=== PATIENT | female | born 1990 | race Caucasian/White ===

== ENCOUNTER → 2016-12-05 | Outpatient (CLI) | payer BC ==
[~2016-12-05] MED LIST: CELEXA 20MG20 MG/TAB PO; CEPHALEXIN500 M1 PO; DEPO-PROVER400 MG/ML IM; FLEXERIL 1010 MG/TAB PO; LEXAPRO 10MG10 MG PO; NAPROSYN500 MG PO; NO HOME MEDICATIONS; NORCO 325 MG-51 TAB PO; PRILOSEC 20MG20 MG PO; VENTOLIN0.09 MG IH
== END ==
LOC: BHSO 08:39
DX: F41.0 Panic disorder [episodic paroxysmal anxiety] (principal)
CPT/HCPCS: 90791-AI

== ENCOUNTER → 2017-01-02 | Outpatient (CLI) | payer BC | LOC: BHSO 15:16 | DX: F33.41 Major depressive disorder, recurrent, in partial remission (principal) ==

== ENCOUNTER 2017-03-30 13:00 | Outpatient (RCR) | payer BC | END 2017-04-02 13:26 | LOC: MKS.ESL.PT 13:00 | DX: M54.2 Cervicalgia (principal) | CPT/HCPCS: G0283-GP ==

== ENCOUNTER → 2020-06-11 | Outpatient (CLI) | payer OTHER | LOC: COL.CARD 11:10 | DX: R00.0 Tachycardia, unspecified (principal); R94.31 Abnormal electrocardiogram [ECG] [EKG] ==

== ENCOUNTER 2022-01-19 15:39 | Outpatient (CLI) | payer BC ==
[~2022-01-19] VITALS: Ht 170.2 cm; Wt 97.5 kg
[2022-01-19 16:05] VITALS: BP 143/96; PULSE 83; TEMP 99
[2022-01-19 16:06] LABS: HEMATOCRIT 41.4 % (37.0-47.0); HEMOGLOBIN 14.2 g/dl (12.5-16.0); MEAN CELL VOLUME 87 fl (80.0-100.0); MEAN CORPUSCULAR HEMOGLOBIN 30 pg (27-31); MEAN CORPUSCULAR HGB CONC 34 g/dl (33.0-37.0); MEAN PLATELET VOLUME 9.9 fl (7.4-10.4); PLATELET COUNT 220 K/mm3 (130-400); RED BLOOD COUNT 4.77 M/mm3 (4.10-5.30); REDCELL DISTRIBUTION WIDTH-CV 11.9 % (11.5-14.5)
[2022-01-19 16:20] LABS: BILIRUBIN,TOTAL 0.6 mg/dL (0.2-1.2); CALCIUM 9.3 mg/dL (8.4-10.2); CREATININE, serum 0.68 mg/dL (0.57-1.11); POTASSIUM 3.6 mmol/L (3.5-4.5); TOTAL PROTEIN 7.6 gm/dL (6.2-8.1)
[2022-01-19] MEDS ORDERED: PROTONIX 40MG T40 MG PO (16:22)
[2022-01-19] MEDS ORDERED: ZOLOFT 100MG100 MG PO (16:22)
[2022-01-19 16:37] LABS: BAND 6 % (0-10); EOSINOPHIL 3 % (0-4); LYMPHOCYTE 40 % (20.0-51.0); NEUTROPHILS 45 % (42.0-75.2); PLATELET ESTIMATE NORMAL (NORMAL)
--- NOTE | 2022-01-19 17:08 | NUR ---
Report to Miller Alatorre.
[2022-01-19 18:47] VITALS: BP 114/77; PULSE 77
[2022-01-20 00:25] LABS: EBV NUCLEAR ANTIGEN IGG Positive (())
[2022-01-20 00:28] LABS: EBV EARLY ANTIGEN IGG Positive (()); EBV IGM AB Negative (())
== END 2022-01-19 19:15 | disposition home or self-care (01) ==
LOC: COL.RAD 15:39
PROVIDERS: Internal Medicine
DX: J03.00 Acute streptococcal tonsillitis, unspecified (principal)
CPT/HCPCS: J7030; Q9967

== ENCOUNTER → 2023-01-02 | Outpatient (CLI) | payer BC ==
[~2023-01-02] MED LIST changes: +PROTONIX 40MG T40 MG PO; +ZOLOFT 100MG100 MG PO
[2023-01-02 14:40] LABS: BASO # 0.1 K/mm3 (0.0-0.2); BASO % 0.4 % (0.0-2.0); EOS # 0.1 K/mm3 (0.0-0.7); EOS % 1.2 % (0.0-4.0); GRAN # 9.1 K/mm3 (1.4-6.5); GRAN % 76.5 % (42.2-75.2); HEMATOCRIT 42.4 % (37.0-47.0); HEMOGLOBIN 14.7 g/dl (12.5-16.0); LYMPH # 1.9 K/mm3 (1.2-3.4); MEAN CELL VOLUME 89 fl (80.0-100.0); MEAN CORPUSCULAR HEMOGLOBIN 31 pg (27-31); MEAN CORPUSCULAR HGB CONC 35 g/dl (33.0-37.0); MEAN PLATELET VOLUME 9.7 fl (7.4-10.4); MONO # 0.7 K/mm3 (0.1-0.6); MONO % 5.6 % (1.7-9.3); PLATELET COUNT 271 K/mm3 (130-400); RED BLOOD COUNT 4.78 M/mm3 (4.10-5.30); REDCELL DISTRIBUTION WIDTH-CV 12.3 % (11.5-14.5)
[2023-01-02 14:55] LABS: ALBUMIN 3.6 gm/dL (3.5-5.0); BILIRUBIN,TOTAL 0.6 mg/dL (0.2-1.2); C-REACTIVE PROTEIN 1.22 mg/dL (0.00-0.50); CALCIUM 8.8 mg/dL (8.4-10.2); CREATININE, serum 0.75 mg/dL (0.57-1.11); POTASSIUM 4.1 mmol/L (3.5-4.5); TOTAL PROTEIN 6.1 gm/dL (6.2-8.1)
[2023-01-02 15:01] LABS: ERYTHROCYTE SEDIMENTATION RATE 1 mm/hr (0-20)
== END ==
LOC: COL.LAB 14:15
PROVIDERS: Nurse Practitioner Family
DX: R10.12 Left upper quadrant pain (principal); Z90.49 Acquired absence of other specified parts of digestive tract
CPT/HCPCS: Q9967

== ENCOUNTER → 2024-05-19 | Outpatient (CLI) | payer BC | LOC: MHCPAIN 09:25 | DX: M54.50 Low back pain, unspecified (principal) | CPT/HCPCS: G0463 ==

== ENCOUNTER → 2024-07-02 | Outpatient (CLI) | payer BC | LOC: MHCPAIN 11:02 | DX: M54.50 Low back pain, unspecified (principal) | CPT/HCPCS: G0463 ==

== ENCOUNTER → 2024-07-28 | Outpatient (CLI) | payer BC | LOC: MHCPAIN 09:32 | DX: M47.817 Spondylosis without myelopathy or radiculopathy, lumbosacral region (principal); M54.50 Low back pain, unspecified | CPT/HCPCS: J0665 ==

== ENCOUNTER → 2024-08-06 | Outpatient (CLI) | payer BC | LOC: MHCPAIN 08:47 | DX: M53.3 Sacrococcygeal disorders, not elsewhere classified (principal); M54.50 Low back pain, unspecified | CPT/HCPCS: G0463 ==